=== PATIENT | male | born 1990 | race Caucasian/White ===

== ENCOUNTER → 2020-09-28 15:49 | Outpatient (CLI) | payer BC, SELFPAY | PROVIDERS: PCP Family Medicine; Visit Provider Family Medicine | DX: Z20.828 Contact with and (suspected) exposure to other viral communicable diseases (principal); U07.1 COVID-19 | CPT/HCPCS: U0003 ==

== ENCOUNTER → 2021-07-23 08:15 | Outpatient (CLI) | payer BC, SELFPAY | PROVIDERS: PCP Internal Medicine Adolescent Medicine; Visit Provider Nurse Practitioner | DX: Z20.822 Contact with and (suspected) exposure to COVID-19 (principal) | CPT/HCPCS: C9803; U0003; U0005 ==

== ENCOUNTER → 2021-10-30 11:01 | Outpatient (CLI) | payer BC, SELFPAY | PROVIDERS: Visit Provider Nurse Practitioner | DX: Z20.822 Contact with and (suspected) exposure to COVID-19 (principal) | CPT/HCPCS: C9803; U0003; U0005 ==

== ENCOUNTER 2022-09-26 09:16 | Emergency (ER) | payer BC, SELFPAY ==
[2022-09-26 10:40] VITALS: BP 150/100; PULSE 104; RESP 20; TEMP 38; O2SAT 97; BMI 26.3
--- NOTE | 2022-09-26 10:52 | EXP.UTC ---
Discharge Plan Disposition Patient Disposition: Home, Self-Care Condition: Good Prescriptions Prescriptions: New oseltamivir [Tamiflu] 75 mg capsule 75 mg PO BID Qty: 10 0RF dhecxmsxefxfmkp-[id number] [Bromfed DM] 2-30-10 mg/5 mL Syrup 5 ml PO Q6H PRN (Reason: Cough) Qty: 240 0RF Referrals Follow up/Referrals: Chacho Mayorga MD [Primary Care Provider] - See instructions Activity Restrictions/Add. Instructions Additional Instructions/Restrictions: Drink plenty of fluids. Take tylenol or ibuprofen for pain or fever. Take the medications as directed. Follow up with your regular doctor. GO TO THE ER FOR ANY WORSENING SYMPTOMS Clinical Impressions Clinical Impression: Influenza A Instructions Patient Instructions: DI for Influenza -- Adult, Oseltamivir Discharge ED Provider: Milo Shields [facility] HPI General Stated complaint: congestion, cough Time Seen by Provider: 09/26/22 10:51 History of Present Illness Provider Complaint: He states that for the past 1 day he has had fever, chills, body aches and he has felt bad. Related Data Previous Rx's Medication Instructions Recorded vcoblxruxwwqepm-upkemtudqxxzuvz-CL 5 ml PO Q6H PRN Cough #240 mL 09/26/22 2 mg-30 mg-10 mg/5 mL oral syrup (Bromfed DM) oseltamivir 75 mg capsule (Tamiflu) 75 mg PO BID #10 caps 09/26/22 Allergies Allergy/AdvReac Type Severity Reaction Status Date / Time No Known Allergies Allergy Verified 09/26/22 10:55 [facility] Medical History No significant past medical history Social History Smoking Status: Unknown if ever smoked alcohol intake: never current occupational status: other Travel in the last 8 weeks: None ROS Obtained: Yes All systems reviewed & no additional complaints except as documented Constitutional Constitutional: Reports chills and Reports fever(s) Eyes Eyes: Denies eye discharge ENT Ears, Nose, Mouth, and Throat: Reports as per HPI Cardiovascular Cardiovascular: Denies chest pain Respiratory Respiratory: Denies chest congestion and Reports cough Gastrointestinal Gastrointestingal: Reports nausea; Denies abdominal pain, constipation, cramping, diarrhea or vomiting Musculoskeletal Musculoskeletal: Denies arthralgias Integumentary/Breasts Skin/Breast: Denies rash Neurologic Neurologic: Denies paresthesias Physical Exam General General appearance: alert and in no apparent distress Head Head exam: atraumatic, normocephalic and normal inspection Eye Eye exam: Present normal appearance, PERRL and EOMI ENT ENT exam: Present normal exam, normal oropharynx, mucous membranes moist, TM's normal bilaterally and normal external ear exam Neck Neck exam: Present normal inspection, full ROM and trachea midline; Absent meningismus or lymphadenopathy Chest Chest inspection: Present normal inspection and symmetric chest wall rise; Absent tenderness Respiratory Respiratory exam: Present normal lung sounds bilaterally; Absent respiratory distress Cardiovascular Cardiovascular exam: Present regular rate and normal rhythm; Absent JVD Abdominal Exam Abdominal exam: Present soft and normal bowel sounds; Absent distention, tenderness or guarding Extremities Exam Extremities exam: Present normal inspection, full ROM and normal capillary refill; Absent calf tenderness Back Exam Back exam: Present normal inspection; Absent tenderness Neurological Exam Neurological exam: Present alert and oriented X3 Psychiatric Psychiatric exam: Present normal affect and normal mood Skin Skin exam: Present warm, dry, intact and normal color Lymphatic Lymphatic Findings: no adenopathy Medical Decision Making Medical Records Medical records reviewed: No I reviewed the patient's medical records. Terrence Inquiry Pt receiving controlled substance: No Lab Data Lab results reviewed: Yes I reviewed the patient's l
[2022-09-26 10:56] VITALS: BP 150/100; PULSE 104; RESP 20; TEMP 38; O2SAT 97
[2022-09-26 11:10] LABS: UTC Influenza A Antigen Positive (Negative); UTC Influenza B Antigen Negative (Negative)
== END 2022-09-26 11:42 | disposition home or self-care (01) ==
PROVIDERS: Emergency Provider Nurse Practitioner Family; PCP Family Medicine
DX: J10.1 Influenza due to other identified influenza virus with other respiratory manifestations (principal)
CPT/HCPCS: 87804; 99212; G0463

== ENCOUNTER 2025-06-05 12:10 | Emergency (ER) | payer BC, SELFPAY ==
--- NOTE | 2025-06-05 12:19 | ECG_ITS ---
APPROVED REPORT Exam: Resting ECG HR:70 bpm ECG Measurements Heart Rate 70 AXES IL 146 P 64 QRSd 95 QRS 4 QT 415 T 31 QTc 436 Conclusion SINUS RHYTHM NORMAL ECG UNCONFIRMED REPORT Normal sinus rhythm. No ST elevation or depression. No T wave inversions. QTc normal at 436 Electronically signed by : [place] VERDUZCO, 06/05/2025 14:24:46
[2025-06-05 12:25] VITALS: BP 123/75; PULSE 69; RESP 18; TEMP 36.6; O2SAT 99; BMI 26.6
--- NOTE | 2025-06-05 12:32 | XR_ITS ---
FINAL REPORT CLINICAL HISTORY: Palpitations COMPARISON: None FINDINGS: CHEST 1 VIEW The heart size is normal. The mediastinum is normal. There is no focal infiltrate or edema. There are no pleural effusions. There is no pneumothorax. There is no osseous abnormality. IMPRESSION: No acute cardiopulmonary process Reviewed, Interpreted and Dictated by Bobby Ponce MD Transcribed by Melissa Tolliver Authenticated and [facility]
--- NOTE | 2025-06-05 12:34 | HMH.EDGENADL ---
Discharge Plan Disposition Patient Disposition: Home, Self-Care Prescriptions Prescriptions: No Action No Known Home Medications Referrals Follow up/Referrals: Ashlee Cain APRN [Primary Care Provider, Medical] - See instructions Activity Restrictions/Add. Instructions Additional Instructions/Restrictions: Follow-up with your primary care physician as needed. If you develop any new or worsening symptoms, such as crushing chest pain, worsening shortness of breath, difficulty breathing, chest pain with pain rating down your arm, to your back, to your neck, or if you get concerned for your health for any reason, return to the emergency department for evaluation Clinical Impressions Clinical Impression: Heart palpitations, Bilateral hand numbness Print Language Print Language: Luxembourgish Discharge ED Provider: Jerry Knox Adult HPI General Chief complaint: Arrhythmia/Palpitations Stated complaint: Arm numbness- elevated HR Time Seen by Provider: 06/05/25 12:27 Mode of Arrival: Ambulatory Source of Information: Patient Description of Symptoms (Recalled from ER Triage Doc. by RN): Patient came in today because his arms and hands felt numb and tingly and he felt like his heart was racing. Patient states he has not eaten anything today, only drank coffee earlier, denies any chest pain or shortness of breath. History of Present Illness HPI narrative: Saw Salas is a 35-year-old male with a history of anxiety who presents to the emergency department for complaints of heart palpitations and bilateral upper extremity numbness and tingling. Patient states that patient was sitting at work with his arms resting when he felt heart palpitations and folic his heart was racing and then developed numbness and tingling over both of his hands and wrists. He states that this has happened before and he describes them as a panic attack. He stepped outside to try to breathe through it and then called his , who is a nurse. He came to the emergency department for evaluation. He denies ever having chest pain. He states that his symptoms have since resolved. He denies any cardiac history, recent sicknesses. Related Data Home Medications ?Medication ?Instructions ?Recorded ?Confirmed No Known Home Medications 06/05/25 06/05/25 Allergies Allergy/AdvReac Type Severity Reaction Status Date / Time No Known Allergies Allergy Verified 09/26/22 10:55 [facility] Disclaimer: The information contained in this section may have been updated after the patient was seen, as this information can be updated by other users. Medical History No significant past medical history Social History (Updated 09/26/22 @ 11:34 by Milo Shields APRN) Smoking Status: Never smoker alcohol intake: never current occupational status: other Travel in the last 8 weeks?: None Have you lived/traveled outside [place] in past 30 days?: No Contact w/someone who lives/traveled outside US past 30 days?: No Exposure to someone with infectious disease in past 14 days?: No Do you have a fever (greater than 100.4 F or 38 C)?: No Have you tested positive for COVID-19?: No Exposed to someone with COVID-19 in past 14 days?: No Do you have a sore throat?: No Do you have a cough?: No Do you have any weakness?: No Do you have any diarrhea?: No Are you experiencing any unusual bleeding?: No Do you have any muscle aches/pain?: No Do you have any abdominal pain?: No Are you experiencing loss of taste or smell?: No ROS Obtained: Yes Systems reviewed as appropriate & no additional complaints except as documented Physical Exam General General appearance: alert and in no apparent distress Head Head exam: atraumatic Eye Eye exam: Present normal appearance ENT ENT exam: Present normal external ear exam Neck Neck exam: Present full ROM Chest Chest inspection: Present symmetric chest wall rise Respiratory Respiratory exam: Present normal lung sounds bilaterally; Absent respiratory distress Cardiovascular Cardiovascular exam: Present regular rate and normal rhythm Abdominal Exam Abdominal exam: Present soft; Absent tenderness or guarding exam: Present deferred Extremities Exam Extremities exam: Present normal inspection Back Exam Back exam: Present normal inspection Neurological Exam Neurological exam: Present alert and oriented X3 Psychiatric Psychiatric exam: Present normal affect Skin Skin exam: Present warm and dry Medical Decision Making Medical Records Screening: Per USPSTF and CDC recommendations, given the prevalence of disease in our region, it is our hospital?s policy to screen for HIV and viral Hepatitis for all patients aged 18 and over and those with ongoing risk factors. Terrence Inquiry Pt receiving controlled substance: No Vital Signs: 06/05/25 12:25 Temperature 98 F Temperature Source Oral Pulse Rate [Right Brachial] 69 Respiratory Rate 18 Blood Pressure [Right Arm] 123/75 Blood Pressure Mean [Right Arm] 91 Blood Pressure Source [Right Arm] Automatic Cuff Blood Pressure Position [Right Arm] Sitting 02 Sat by Pulse Oximetry 99 Oxygen Delivery Method Room Air Lab Data Lab Results 06/05/25 12:28: WBC 3.1 L, RBC 4.52 L, Hgb 13.6 L, Hct 39.5 L, MCV 87.4, MCH 30.1, MCHC 34.4, RDW 11.7, Plt Count 212, MPV 9.8, Neut % (Auto) 47.0, Lymph % (Auto) 40.8, Gallia % (Auto) 10.3 H, Eos % (Auto) 1.3, Baso % (Auto) 0.6, Neut # (Auto) 1.5 L, Lymph # (Auto) 1.3, Gallia # (Auto) 0.3, Eos # (Auto) 0.0, Baso # (Auto) 0.0, Sodium 134 L, Potassium 3.4 L, Chloride 102, Carbon Dioxide 26, Anion Gap 9.4, BUN 15, Creatinine 0.80, Estimated Creat Clear 155, Estimated GFR 111, Est GFR ( Amer) 134, Glucose 98, Calcium 9.3, Total Bilirubin 1.8 H, AST 31, ALT 19, Alkaline Phosphatase 89, Troponin I < 0.01, Total Protein 7.9, Albumin 4.2, Globulin 3.7 H, Albumin/Globulin Ratio 1.1, TSH 1.04, Free T4 1.07 06/05/25 12:28 06/05/25 12:28 Orders (Tests/Meds): ORDERS Category Date Time Status CXR --portable [XR chest portable] Stat Exams 06/05/25 12:32 Completed CBC w/Auto Diff [Complete Blood Count Auto Diff] Stat Lab 06/05/25 12:28 Completed CMP [Comprehensive Metabolic Panel] Stat Lab 06/05/25 12:28 Completed Free T4 (Free Thyroxine) Stat Lab 06/05/25 12:28 Completed TSH [Thyroid Stimulating Hormone] Stat Lab 06/05/25 12:28 Completed Troponin I Q3H Lab 06/05/25 15:45 Ordered Troponin I Q3H Lab 06/05/25 18:45 Ordered Troponin I Stat Lab 06/05/25 12:28 Completed ECG Data Tracing #1: I reviewed this ECG and interpreted as documented below: Normal sinus rhythm. No ST elevation or depression. QTc normal at 436. HEART Score History (anamnesis): Slightly suspicious ECG: Normal Age: <45 years Risk factors: No known risk factors Troponin: </= normal limit HEART Score: 0 Medical Decision Narrative: Saw Salas is a 35-year-old male with a history of anxiety who presents to the emergency department for complaints of heart palpitations and bilateral upper extremity numbness and tingling. Patient states that patient was sitting at work with his arms resting when he felt heart palpitations and folic his heart was racing and then developed numbness and tingling over both of his hands and wrists. He states that this has happened before and he describes them as a panic attack. He stepped outside to try to breathe through it and then called his , who is a nurse. He came to the emergency department for evaluation. He denies ever having chest pain. He states that his symptoms have since resolved. He denies any cardiac history, recent sicknesses. On arrival, patient's heart rate within normal limits, normotensive, afebrile, breathing comfortably room air with appropriate oxygen saturation. Physical exam, stated above, revealed overall well-appearing male in no distress. Cardiopulmonary exam without murmur, rubs. No wheezing, rales or rhonchi. Abdomen is soft, nontender nondistended. He has equal pulses in bilateral upper extremities. Differential diagnosis includes, but is not limited to: ACS, pericarditis, myocarditis, anxiety attack, electrolyte derangement, cardiac arrhythmia, hypothyroidism, among others. Low concern for pulmonary embolism as patient's PERC score is 0. Workup in the emerged part included: TSH/free T4, troponin, CBC, CMP, EKG, chest x-ray EKG shows sinus rhythm. No ischemic changes. Laboratory studies show mild leukopenia with white blood cell count of 3.1, mild anemia 13.6, hematocrit 39.5 but nonactionable. Mild hyponatremia 134, mild hypokalemia 3.4 but nonactionable. CMP otherwise unremarkable nonactionable. Bilirubin is mildly elevated at 1.8, however liver enzymes otherwise unremarkable. Initial opponent less than 0.01. TSH and free T4 within normal limits. On reassessment, patient remains in stable condition. He is asymptomatic at this time. He has isolated mild hyperbilirubinemia but otherwise workup is unremarkable there is low concern for ACS at this time. Heart score is 0. Recommend follow-up with patient's primary care doctor. Return precautions were given. All questions were answered. He demonstrated understanding and was in agreement this plan. He was then discharged from the emergency department in stable condition. Critical Care Critical Care Time Critical Care Time: No
[2025-06-05 12:38] LABS: Hematocrit 39.5 % (42.0-52.0); Hemoglobin 13.6 g/dL (14.1-18.0); Immature Granulocytes % 0 %; Mean Corpuscular HGB Conc 34.4 g/dL (31.8-35.4); Mean Corpuscular Hemoglobin 30.1 pg (27.0-31.2); Mean Corpuscular Volume 87.4 fl (80-94); Nucleated Red Blood Cells % 0 %; Platelet Count 212 K/mm3 (142-424); Red Blood Count 4.52 M/mm3 (4.60-6.20); Red Cell Distribution Width-SD 37.6 fL; White Blood Count 3.1 K/mm3 (4.8-10.8)
--- OUTSIDE RECORDS SUMMARY | 2025-06-05 12:44 | XMS_ITS | Clinical Summary ---
Author Organization Healthcare Address [address] [place] [address] Care Team Providers Care Environmental Director Name Role Phone Ming Rosas MD Primary Care Provider Social History Tobacco Use Types Packs/Day Years Used Date Smoking Tobacco: Every Day Sex and Gender Information Value Date Recorded Sex Assigned at Not on file Legal Sex Male 5:56 PM EDT Gender Identity Not on file Sexual Orientation Not on file Last Filed Vital Signs Vital Sign Reading Time Taken Comments Blood Pressure - - Pulse - - Temperature - - Respiratory Rate - - Oxygen Saturation - - Inhaled Oxygen Concentration - - Weight 78.5 kg (172 lb 15.9 oz) 03/18/2017 7:35 AM EDT Height 182.9 cm (6') 03/18/2017 7:35 AM EDT Body Mass Index 23.46 03/18/2017 7:35 AM EDT Plan of Treatment Not on file Care Teams Environmental Director Relationship Specialty Start Date End Date Ming Rosas MD [address] [place] [address] [place] [address] PCP - General 03/15/21
[2025-06-05 13:00] LABS: Albumin Level 4.2 g/dl (3.5-5.0); Chloride 102 mmol/L (98-107); Potassium 3.4 mmoL/L (3.5-5.1); Sodium 134 mmol/L (136-145)
[2025-06-05 13:03] LABS: Alanine Aminotransferase 19 U/L (12-78); Albumin/Globulin Ratio 1.1 (1.1-1.8); Alkaline Phosphatase 89 U/L (38-126); Anion Gap 9.4 mEq/L (5-15); Aspartate Amino Transferase 31 U/L (17-59); Bilirubin,Total 1.8 mg/dl (0.2-1.3); Blood Urea Nitrogen 15 mg/dl (9-20); Calcium 9.3 mg/dl (8.4-10.2); Carbon Dioxide 26 mmol/L (22.0-30.0); Creatinine Clearance Estimated 155 mL/min (50-200); Creatinine,Serum 0.80 mg/dl (0.66-1.25); Estimated Glomerular Filt Rate 111 ml/min (>60); GFR (African American) 134 ML/MIN (>60); Globulin 3.7 g/dL (1.3-3.2); Glucose 98 mg/dl (74-100); Total Protein,Serum 7.9 g/dl (6.3-8.2)
[2025-06-05 13:19] LABS: Free T4 (Free Thyroxine) 1.07 ng/dl (0.78-2.19)
[2025-06-05 13:23] LABS: Troponin I < 0.01 ng/ml (0.00-0.034)
[2025-06-05 13:36] LABS: Thyroid Stimulating Hormone 1.04 uIU/mL (0.465-4.68)
[2025-06-05 14:09] VITALS: BP 132/85; PULSE 72; RESP 16; TEMP 36.6; O2SAT 98
== END 2025-06-05 14:17 | disposition home or self-care (01) ==
PROVIDERS: Emergency Provider Student in an Organized Health Care Education/Training Program; PCP Nurse Practitioner Family
DX: R20.0 Anesthesia of skin (principal); R00.2 Palpitations
CPT/HCPCS: 71045; 80053; 84439; 84443; 84484; 85025; 93005; 99284